=== PATIENT | male | born 1965 | race Caucasian/White ===

== ENCOUNTER → 2018-07-17 14:44 | Outpatient (CLI) | payer BC, SELFPAY ==
--- NOTE | 2018-07-17 14:54 | US_ITS ---
US scrotum HISTORY: ITS.REASON: SCROTAL PAIN ORDERING PHYSICIAN: Mihai Jose MD PATIENT AGE: 52 years Comparison: None FINDINGS: Right testicle measures 3.9 x 1.8 x 2.8 cm. There is blood flow with no evidence of mass. There is a 16 x 10 mm epididymal cyst on the right with other smaller cysts or dilated ducts in the epididymis noted. No evidence of hydrocele or varicocele. The left testicle measures 3.4 x 2 x 2.8 cm. Blood flow is present with no evidence of mass. Unremarkable appearing epididymis. No hydrocele or varicocele The patient reports pain in the right groin. Images of this area demonstrates a 4 x 1.3 cm lymph node IMPRESSION: 16mm right epididymal cyst Mildly prominent lymph node in the right groin
== END ==
PROVIDERS: Family Provider Family Medicine; PCP Family Medicine; Visit Provider Family Medicine
DX: N50.82 Scrotal pain (principal)
CPT/HCPCS: 76870

== ENCOUNTER → 2019-09-29 08:21 | Outpatient (CLI) | payer BC, SELFPAY ==
--- NOTE | 2019-09-29 08:35 | CT_ITS ---
PROCEDURE: CT ABDOMEN PELVIS WO/W CON CLINICAL INDICATION: RIGHT LOWER QUAD PAIN Right lower quadrant pain radiating into the right COMPARISON: No exams were available for comparison TECHNIQUE: IV Contrast: 75ML OPTIRAY 350 Oral Contrast 450ml Redicat Axial images obtained with sagittal and coronal reformats. All CT scans at the facility use one or more dose reduction, viz: automated exposure control, ma/kV adjustment per patient size (including targeted exams where dose is matched to indication, i.e. head), or iterative reconstruction technique. FINDINGS: LOWER THORAX: No acute finding ABDOMEN & PELVIS: The liver, spleen adrenal glands, and pancreas have an unremarkable appearance. Gallstones are with stones filling the lower aspect of the fundus also a small neck of the gallbladder. No biliary dilatation. Unremarkable appearing kidneys. No renal or ureteral calculi or hydronephrosis. No intestinal obstruction or free air. No evidence of appendicitis. Diverticulosis involves the descending and sigmoid colon but no evidence of diverticulitis. Urinary bladder wall slightly thickened and in part may be due to nondistention. Mild prominence of the prostate at 4.8 cm. No acute bony findings. IMPRESSION: 1. Cholelithiasis. 2. Diverticulosis of the descending and sigmoid colon. No evidence of diverticulitis 3. Other nonacute findings as described above Dictated by: Vick Munoz MD 09/29/2019 18:26 Electronically signed by Vick Munoz MD in [place] 09/29/2019 18:26
== END ==
PROVIDERS: PCP Family Medicine; Visit Provider Family Medicine
DX: R10.31 Right lower quadrant pain (principal)
CPT/HCPCS: 74178; Q9967

== ENCOUNTER 2021-02-02 17:58 | Emergency (ER) | payer BC, SELFPAY ==
[2021-02-02 18:18] VITALS: BP 141/87; PULSE 79; RESP 16; TEMP 36.8; O2SAT 99; BMI 37.8
--- NOTE | 2021-02-02 18:32 | HMH.EDUTC ---
[facility] [place]ression: Strep throat Disposition: Home, Self-Care Condition on Discharge: Good Instructions: Strep Throat, DI for Strep Throat, Amoxicillin Additional Instructions: *Monitor Temp, Over the counter Motrin or Tylenol as directed/as needed Tylenol every 4 hours and Motrin every 6 hours (as long as your family doctor has told you that you can take it) for fever or pain. and straight to ER if unable to lower temp less than 101.0 after medication given *Warm salt water gargles may help to soothe the throat *Throat Lozenges *Warm fluids like tea with honey may help to soothe the throat *Sleep elevated *Humidifier/Vaporizer *If you did not take Penicillin shot or was unable to, start taking antibiotic immediately and make sure that you take it for the FULL length of time although you should start to feel better in 24-48 hours *change toothbrush and toothpaste 24-48 hours after starting to take antibiotics so you do not reinfect yourself Monitor Temp. Tylenol and/or Ibuprofen as needed. ER if fever is no less than 101 despite alternating Tylenol and Ibuprofen * Encourage fluids, water, Gatorade, powerade, pedialyte if /toddler/or child *Cold fluids, popsicles and ice cream may feel good on his throat Follow up IMMEDIATELY for new or worsening symptoms or no Noticeable improvement over the next 48-72 hours. 911 for difficulty breathing or swallowing Prescriptions: Amoxicillin [Amoxicillin 500mg Cap] 500 mg PO BID 10 Days #20 cap Transmission Status: Received by [id number] Referrals: Mihai Jose MD [Primary Care Provider] - As needed Forms: Work/School Release Time of Disposition: 18:38 Medical Decision Making - David Inquiry Pt receiving controlled substance: No David was queried for this patient: No Vital Signs: 02/02/21 18:18 02/02/21 18:43 Temperature 98.3 F 98.3 F Temperature Source Oral Pulse Rate 80 Pulse Rate [Right] 79 Respiratory Rate 16 16 Blood Pressure 140/85 Blood Pressure [Right Arm] 141/87 H Blood Pressure Mean [Right Arm] 105 02 Sat by Pulse Oximetry 99 Oxygen Delivery Method Room Air Room Air - Lab Data Lab results reviewed: Yes: I reviewed the patient's lab results. Lab Results 02/02/21 18:43: Strep [facility] Positive A Medical Decision Narrative: Patient states that he has taken amoxicillin before without complications or reactions [facility] [place] - General Stated complaint: sore throat,dizzy Time Seen by Provider: 02/02/21 18:32 Description of Symptoms (Recalled from Triage Doc. by RN): pt c/o headache, nausea, sore throat, and sweating. HEENT Symptoms (Recalled from RN notes): Yes Resp Symptoms (Recalled from RN notes): No Skin Symptoms (Recalled from RN notes): Yes MS Symptoms (Recalled from RN notes): No Functional Status (Recalled from RN notes): na - History of Present Illness Provider Complaint: Patient states that 2 of his kids recently tested positive for strep throat States that today he has been having headache, scratchy throat, nausea and sweaty State that he wasnt sure if he had fever or not but earlier today he broke out in sweat States that after he got home he was still having scratchy throat and not feeling well and found out son tested positive for strep today also - Related Data Home Medications Medication Instructions Recorded Confirmed allopurinoL [Allopurinol 100mg 100 mg PO DAILY 02/02/21 02/02/21 tablet] Previous Rx's Medication Instructions Recorded Amoxicillin [Amoxicillin 500mg 500 mg PO BID 10 Days #20 cap 02/02/21 Cap] Allergies Allergy/AdvReac Type Severity Reaction Status Date / Time No Known Allergies Allergy Verified 02/02/21 18:21 - Worker's Comp Is this a Worker's Comp case?: No [facility] History - Hepatitis A Screen Drug use history?: No High risk sexual behaviors?: No History of sexually transmitted infection?: No Currently employed?:
[2021-02-02 18:43] VITALS: BP 140/85; PULSE 80; RESP 16; TEMP 36.8
[2021-02-02 18:43] LABS: UTC Strep Screen (Rapid) Positive (Negative)
== END 2021-02-02 18:44 | disposition home or self-care (01) ==
PROVIDERS: Emergency Provider Nurse Practitioner; PCP Family Medicine
DX: J02.0 Streptococcal pharyngitis (principal)
CPT/HCPCS: 87880; 99202; G0463

== ENCOUNTER → 2022-10-09 09:06 | Outpatient (CLI) | payer BC, SELFPAY ==
[2022-10-09 18:50] LABS: Potassium 4.5 mmoL/L (3.5-5.1)
[2022-10-09 18:51] LABS: Alanine Aminotransferase 42 U/L (12-78); Albumin Level 4.6 g/dl (3.5-5.0); Albumin/Globulin Ratio 2.1 (1.1-1.8); Alkaline Phosphatase 111 U/L (38-126); Anion Gap 12.5 mEq/L (5-15); Aspartate Amino Transferase 38 U/L (17-59); Bilirubin,Total 0.4 mg/dl (0.2-1.3); Blood Urea Nitrogen 15 mg/dl (9-20); Calcium 9.7 mg/dl (8.4-10.2); Carbon Dioxide 28 mmol/L (22.0-30.0); Chloride 104 mmol/L (98-107); Chol/HDL Ratio 3.8 (1-3.5); Cholesterol 117 mg/dl (140-200); Estimated Glomerular Filt Rate 88 ml/min (>60); GFR (African American) 106 ML/MIN (>60); Globulin 2.2 g/dL (1.3-3.2); Glucose 93 mg/dl (74-100); HDL Cholesterol 31 mg/dl (40-60); Sodium 140 mmol/L (136-145); Total Protein,Serum 6.8 g/dl (6.3-8.2); Triglycerides 107 mg/dl (30-150); VLDL Cholesterol 21 mg/dL (0-40)
[2022-10-09 19:02] LABS: Direct LDL Cholesterol 63.54 mg/dL (100-129)
== END ==
PROVIDERS: PCP Nurse Practitioner; Visit Provider Nurse Practitioner
DX: I10 Essential (primary) hypertension (principal); E78.5 Hyperlipidemia, unspecified; E79.0 Hyperuricemia without signs of inflammatory arthritis and tophaceous disease
CPT/HCPCS: 80053; 80061; 84550